=== PATIENT | male | born 1995 | race Caucasian/White ===

== ENCOUNTER 2017-08-02 15:46 | Emergency (ER) | payer SELFPAY ==
[~2017-08-02] VITALS: Ht 175.3 cm; Wt 81.0 kg
[2017-08-02 16:22] VITALS: BP 136/78
--- NOTE | 2017-08-02 19:03 | NUR ---
PATIENT CALLED FROM [facility] NO ANSWER CHELSI WONG
== END 2017-08-02 18:55 | disposition left against medical advice (07) ==
LOC: MED 15:46
DX: M54.5 Low back pain (principal); Z53.21 Procedure and treatment not carried out due to patient leaving prior to being seen by health care provider

== ENCOUNTER 2018-09-01 13:18 | Emergency (ER) | payer OTHER ==
[~2018-09-01] VITALS: Ht 175.3 cm; Wt 88.0 kg
[2018-09-01 13:20] VITALS: BP 135/64
--- NOTE | 2018-09-01 13:28 | NUR ---
PT AMBULATES TO BED 8
--- NOTE | 2018-09-01 13:38 | NUR ---
23 YO M BIB GIRLFRIEND W/ C/O LEFT EYE DISCOMFORT SINCE YESTERDAY AT WORK. PT WENT TO SURGICAL SPECIALIST TODAY AND WAS TOLD HE HAS A SMALL METAL FRAGMENT IN THE EYE. DENIES VISUAL CHANGES, REPORTS 5/10 PAIN THAT IS "ANNOYING". PT PRESENT W/ LEFT EYE REDNESS. PT DENIES N/V/D; AAOX4, PERRL, WITH EVEN AND STEADY GAIT; LUNGS CLEAR BL, BREATHING UNLABORED; HR EVEN AND REGULAR, BL PERIPHERAL PULSES PRESENT;VSS; PATIENT POSITIONED FOR COMFORT; HOB ELEVATED; BEDRAILS UP X2; BED DOWN. HX DENIES RX DENIES
--- NOTE | 2018-09-01 13:41 | NUR ---
Patient being evaluated by physician at bedside.
[2018-09-01] MEDS ORDERED: FLUORESCEIN OPTH STRIP 0.6 MG OP ONE (13:45)
[2018-09-01] MEDS ORDERED: TETRACAINE HCL/PF 0.5% OPTH 4 ML BTL OP ONE (13:45)
[2018-09-01] MEDS ORDERED: FLUORESCEIN OPTH STRIP 0.6 MG ONE (13:45)
[2018-09-01] MEDS ORDERED: TETRACAINE HCL/PF 0.5% OPTH 4 ML BTL ONE (13:46)
[2018-09-01] MEDS ORDERED: GENTAMICIN OP 0.3% 15 MG/5 ML BTL OP ONE (13:50)
[2018-09-01 14:31] VITALS: BP 133/68
--- NOTE | 2018-09-01 14:32 | NUR ---
Patient discharged with v/s stable. Written and verbal after care instructions given and explained. Patient alert, oriented and verbalized understanding of instructions. Ambulatory with steady gait. All questions addressed prior to discharge. ID band removed. Patient advised to follow up with PMD. Rx of GARAMYCIN given. Patient educated on indication of medication including possible reaction and side effects. Opportunity to ask questions provided and answered.
== END 2018-09-01 14:32 | disposition home or self-care (01) ==
LOC: MED 13:18
DX: T15.02XA Foreign body in cornea, left eye, initial encounter (principal); X58.XXXA Exposure to other specified factors, initial encounter; Y93.89 Activity, other specified; Y92.89 Other specified places as the place of occurrence of the external cause; Y99.8 Other external cause status
CPT/HCPCS: 65220; 99284